=== PATIENT | male | born 1980 | race Caucasian/White ===

== ENCOUNTER 2025-05-17 12:24 | Emergency (ER) | payer SELFPAY ==
[2025-05-17 12:24] VITALS: BP 142/98
[2025-05-17 12:29] VITALS: BMI 24.2
[2025-05-17] MEDS: OMNIPAQUE 50 ML PO (12:38)
[2025-05-17 12:51] LABS: Hematocrit 43.6 % (39.0-52.0); Hemoglobin 15.4 g/dL (13.0-18.0); Mean Corp Hgb Conc. 35.3 g/dL (33.0-37.0); Mean Corpuscular Volume 85.2 fL (80.0-94.0); Nucleated Red Blood Cells % 0 % (-); Platelet Count 270 10^3/uL (130-400); Red Cell Dist. Width 11.8 % (11.5-14.5)
[2025-05-17 13:18] LABS: ALT (SGPT) 25 U/L (0-50); AST (SGOT) 24 U/L (17-59); Albumin 4.7 g/dl (3.5-5.0); Alkaline Phosphatase 78 U/L (38-126); Blood Urea Nitrogen 15 mg/dl (9-20); Calcium 9.7 mg/dl (8.4-10.2); Carbon Dioxide 30 mmol/L (22-30); Chloride 102 mmol/L (98-107); Estimated Creatinine Clearance 121 ml/min; Glucose 98 mg/dl (70-99); Lipase 64 U/L (23-300); Potassium 4.6 mmol/L (3.5-5.1); Sodium 139 mmol/L (135-145); Total Protein 7.5 g/dl (6.3-8.2); eGFR > 60.00
--- NOTE | 2025-05-17 15:33 | ED.GENMED ---
History of Present Illness
<Carson Lin MD, Resident - Last Filed: 05/17/25 18:23>
General
Chief Complaint: Abdominal Symptoms
Source: patient
Time Seen by Provider: 05/17/25 15:31
History of Present Illness
History of Present Illness:
45-year-old male with a history of SVT post cardiac ablation comes to the ED due to possible colitis. Was sent by his urgent care due to having mid lower abdominal pain, mild discomfort that radiates down his legs. His pain worsened last night and
he reported having mucousy stools this morning. He had recently been undergoing antibiotic treatment for sinus infection with Augmentin and finished the course last week. Overall he does not have any fever, chills, but does continue to have the
lower abdominal pain which she describes as sharp. He does not have any chest pain, shortness of breath, nausea or vomiting or any diarrhea symptoms.
Past History
<Carson Lin MD, Resident - Last Filed: 05/17/25 18:23>
Past History
ED Past Medical History: Arrthythmia (SVT, post ablation)
ED Past Surgical History: Cardiac (Cardiac ablation)
Phy Exam
<Richelle Sanchez MD - Last Filed: 05/17/25 16:10>
Physical Exam
Physical Exam:
Physical Exam
General: no apparent distress, not acutely ill
Neck: supple. no meningeal signs. normal psoterior pharynx
Heart: s1/s2 regular rate and rhythm, no murmur. equal radial pulses.
Lungs: no acute respiratory distress. clear bilaterally
Abdomen: Normal bowel sounds. Nondistended. Bilateral lower abdominal tenderness without rebound or guarding. No pulsatile mass
Neuro: alert and oriented. no focal neurological deficits
Skin: no rash
Psychiatric: well kept. interactive and cooperative
Extremities: no edema. no calf tenderness. negative homans. good distal pulses
Course
<Carson Lin MD, Resident - Last Filed: 05/17/25 18:23>
Orders/Labs/Results
Orders:
Orders
05/17/25 12:33
Iohexol [Omnipaque] See Protocol PO NOW STA
05/17/25 12:43
Complete Blood Count/With Diff Urgent
Comprehensive Metabolic Panel Urgent
Lipase Urgent
05/17/25 15:55
CT Abd/pel W Iv And Oral Contr Urgent
Comment:
Reason For Exam: RLQ pain
Iohexol [Omnipaque] See Protocol PO NOW STA
05/17/25 18:01
LevoFLOXacin [Levaquin] 500 mg PO NOW STA
MetroNIDAZOLE [Flagyl] 500 mg PO NOW STA
05/17/25 18:07
Acetaminophen [Tylenol] 650 mg PO NOW STA
Abnormal Lab Results
05/17/25
12:43
WBC 12.8 H 10^3/uL
(4.8-10.8)
Absolute Neuts (auto) 9.8 H 10^3/uL
(1.4-6.5)
Absolute Monos (auto) 1.3 H 10^3/uL
(0.1-0.6)
Neutrophils % 76.6 H %
(42.2-75.2)
Lymphocytes % 11.8 L %
(20.5-51.1)
Monocytes % 10.5 H %
(1.7-9.3)
05/17/25 12:43
05/17/25 12:43
Vital Signs
Initial and Last Documented VS:
Initial Vital Signs
Temp Pulse Resp BP Pulse Ox
99.3 F 89 16 142/98 95
05/17/25 12:24 05/17/25 12:24 05/17/25 12:24 05/17/25 12:24 05/17/25 12:24
Last Documented Vital Signs
Temp Pulse Resp BP Pulse Ox
99.3 F 62 18 133/82 97
05/17/25 12:24 05/17/25 17:31 05/17/25 17:31 05/17/25 17:31 05/17/25 17:31
<Richelle Sanchez MD - Last Filed: 05/17/25 16:10>
Orders/Labs/Results
Orders:
Orders
05/17/25 12:33
Iohexol [Omnipaque] See Protocol PO NOW STA
05/17/25 12:43
Complete Blood Count/With Diff Urgent
Comprehensive Metabolic Panel Urgent
Lipase Urgent
05/17/25 15:55
CT Abd/pel W Iv And Oral Contr Urgent
Comment:
Reason For Exam: RLQ pain
Iohexol [Omnipaque] See Protocol PO NOW STA
05/17/25 18:01
LevoFLOXacin [Levaquin] 500 mg PO NOW STA
MetroNIDAZOLE [Flagyl] 500 mg PO NOW STA
05/17/25 18:07
Acetaminophen [Tylenol] 650 mg PO NOW STA
Abnormal Lab Results
05/17/25
12:43
WBC 12.8 H 10^3/uL
(4.8-10.8)
Absolute Neuts (auto) 9.8 H 10^3/uL
(1.4-6.5)
Absolute Monos (auto) 1.3 H 10^3/uL
(0.1-0.6)
Neutrophils % 76.6 H %
(42.2-75.2)
Lymphocytes % 11.8 L %
(20.5-51.1)
Monocytes % 10.5 H %
(1.7-9.3)
05/17/25 12:43
05/17/25 12:43
Vital Signs
Initial and Last Documented VS:
Initial Vital Signs
Temp Pulse Resp BP Pulse Ox
99.3 F 89 16 142/98 95
05/17/25 12:24 05/17/25 12:24 05/17/25 12:24 05/17/25 12:24 05/17/25 12:24
Last Documented Vital Signs
Temp Pulse Resp BP Pulse Ox
99.3 F 62 18 133/82 97
05/17/25 12:24 05/17/25 17:31 05/17/25 17:31 05/17/25 17:31 05/17/25 17:31
<Carson Lin MD, Resident - Last Filed: 05/17/25 18:23>
MDM/Problems Addressed
Differential Diagnosis Includes:
Acute infectious colitis, acute presentation of inflammatory bowel disease, acute diverticulitis, UTI
MDM/Problems Addressed:
Patient presents with acute lower abdominal pain and 1 episode of a mucousy bowel movement
CT abdomen pelvis with IV and oral contrast ordered to check for any appendicitis, diverticulitis
Lipase levels normal, leukocytosis leading us to believe that there is an infectious/inflammatory process.
CT shows presence of acute diverticulitis. Discussed with patient regarding avoiding foods potentially worsen his symptoms. Will give him a dose of antibiotic treatment with levofloxacin and metronidazole
Will send course of antibiotics for 10 days with instructions to follow-up with primary care physician
<Richelle Sanchez MD - Last Filed: 05/17/25 16:10>
MDM/Problems Addressed
Differential Diagnosis Includes:
Acute infectious colitis, acute presentation of inflammatory bowel disease, acute diverticulitis, UTI
MDM/Problems Addressed:
Patient presents with acute lower abdominal pain and 1 episode of a mucousy bowel movement
Chronic conditions affecting care:
SVT
Acute Exacerbation and/or Progression of Chronic Illness:
Patient does not show sign of acute SVT, as he is presenting with a normal sounding heart rate and is not tachycardic
<Carson Lin MD, Resident - Last Filed: 05/17/25 18:23>
*Pulse Oximetry
SaO2: 95
Oxygen Mode of Delivery: Room air
*Critical Care Note
Total Time (30-74mins, 75-104mins- exclusive of procedures): Not Applicable
<Richelle Sanchez MD - Last Filed: 05/17/25 16:10>
*Pulse Oximetry
Patient hypoxic: no
Comment: 95% on room air
ED Attending Note
<Carson Lin MD, Resident - Last Filed: 05/17/25 18:23>
-
Portions of this chart may have been created with voice recognition software.� Occasional wrong word or��sound alike� substitutions may have occurred due to the inherent limitations of voice recognition software.
<Richelle Sanchez MD - Last Filed: 05/17/25 16:10>
ED Attending Note
I performed a history and physical exam of patient and discussed management with resident, I reviewed resident's note and agree with documented findings and plan of care.: Yes
ED Attending Note:
Patient presents with 2 days of lower abdominal pain. Patient reports is associated with 1 episode of a mucousy bowel movement but otherwise no diarrhea of any kind. Patient's pain is equal bilateral. Given patient's tenderness, continuous pain,
and elevated white blood cell count, decision made to do a CT.
Discharge Plan
Departure
Patient Disposition: Home (Routine Discharge)
Date of Disposition: 05/17/25
Time of Disposition: 18:16
Patient with high blood pressure during this ER visit?: Yes
Condition: Fair
Covid-19: Not Applicable
Discharge Problem:
Acute diverticulitis
Instructions: Diverticulitis (DC), BLOOD PRESSURE
Prescriptions:
New
ciprofloxacin HCl 500 mg tablet
500 mg PO BID 10 Days Qty: 19 0RF
metronidazole 500 mg tablet
500 mg PO Q8H 10 Days Qty: 29 0RF
No Action
famotidine 40 mg Tablet
40 mg PO DAILY
Referrals:
FARZAD HERNANDEZ MD [Non-Admitting Privileges, Internal Medicine] - Call in 1-3 days for appt
Referral Note: Follow-up with your primary care provider for further management
Activity Restrictions/Additional Instructions:
Abdominal CT scan results showed acute diverticulitis
Please take ciprofloxacin 500 mg twice a day and metronidazole 500 mg 3 times a day
If your symptoms worsen, you develop fever, chills, worsening diarrhea with loose bowel movements around 4-5 times a day, please return to the ED or let your primary care provider know
Please follow-up with your primary care provider for further management
Interventions
Interventions:
*Risk Screen - Suicide Last Done: 05/17/25 16:11
*General Assessment Last Done: 05/17/25 16:11
*Neglect/Abuse Screening Last Done: 05/17/25 16:11
*ED- Fall Risk Assessment Last Done: 05/17/25 16:11
*ED COVID-19 Vaccine History Last Done: 05/17/25 16:11
[id number] Assessment Last Done: 05/17/25 16:11
Discharge Date and Time
Print Language: [place]
[2025-05-17 16:08] VITALS: BP 142/94
[2025-05-17 17:31] VITALS: BP 133/82
[2025-05-17] MEDS: TYLENOL 650 MG PO (18:21)
[2025-05-17] MEDS: LEVAQUIN 500 MG PO (18:21)
[2025-05-17] MEDS: FLAGYL 500 MG PO (18:21)
== END 2025-05-17 18:45 | disposition home or self-care (01) ==
LOC: EMR 12:24
PROVIDERS: Physician Assistant; EMERGENCY PHYSICIAN Emergency Medicine
DX: K57.32 Diverticulitis of large intestine without perforation or abscess without bleeding (principal)
CPT/HCPCS: 99284; 74177; 80053; 83690; 85025; Q9967